=== PATIENT | female | born 1955 | race Hispanic/Latino ===

== ENCOUNTER → 2018-02-21 | Outpatient (CLI) | payer OTHER, MEDICARE ==
[~2018-02-21] MED LIST: ALBU8.5H8 IH; ASPI-1181 PO; ATOR40TA69 PO; CALC600T12 PO; OMEP40CA37 PO; OXYB5TAB10 PO; PREG75 PO; PREM625 PO; QUET150T PO; VENL-63 PO
== END ==
LOC: RAH 09:10
PROVIDERS: ATTEND Internal Medicine
DX: M25.562 Pain in left knee (principal)
CPT/HCPCS: 73562

== ENCOUNTER → 2018-10-05 | Outpatient (CLI) | payer OTHER, MEDICARE | END | disposition home or self-care (01) | LOC: RAH 08:57 | PROVIDERS: ATTEND Internal Medicine | DX: Z12.31 Encounter for screening mammogram for malignant neoplasm of breast (principal) | CPT/HCPCS: 77067 ==

== ENCOUNTER → 2018-12-18 | Outpatient (CLI) | payer OTHER, MEDICARE | END | disposition home or self-care (01) | LOC: RAH 09:42 | PROVIDERS: ATTEND Internal Medicine | DX: S60.011A Contusion of right thumb without damage to nail, initial encounter (principal); L03.011 Cellulitis of right finger; X58.XXXA Exposure to other specified factors, initial encounter; Y93.89 Activity, other specified; Y92.89 Other specified places as the place of occurrence of the external cause; Y99.8 Other external cause status | CPT/HCPCS: 73130 ==

== ENCOUNTER → 2019-07-16 | Outpatient (CLI) | payer OTHER, MEDICARE ==
[~2019-07-16] MED LIST changes: -QUET150T PO; +QUET150T2 PO
== END | disposition home or self-care (01) ==
LOC: RAH 09:40
PROVIDERS: ATTEND Internal Medicine
DX: M17.11 Unilateral primary osteoarthritis, right knee (principal)
CPT/HCPCS: 73562

== ENCOUNTER → 2019-12-02 | Outpatient (CLI) | payer OTHER, MEDICARE ==
[~2019-12-02] MED LIST changes: +OMEP40CA13 PO; -OMEP40CA37 PO; -OXYB5TAB10 PO; +OXYB5TAB15 PO
== END | disposition home or self-care (01) ==
LOC: RAH 08:53
PROVIDERS: ATTEND Orthopaedic Surgery
DX: S83.241A Other tear of medial meniscus, current injury, right knee, initial encounter (principal); X58.XXXA Exposure to other specified factors, initial encounter; Y93.89 Activity, other specified; Y92.89 Other specified places as the place of occurrence of the external cause; Y99.8 Other external cause status
CPT/HCPCS: 73721

== ENCOUNTER → 2019-12-11 | Outpatient (CLI) | payer OTHER, MEDICARE | END | disposition home or self-care (01) | LOC: RAH 11:35 | PROVIDERS: ATTEND Internal Medicine | DX: M19.011 Primary osteoarthritis, right shoulder (principal) | CPT/HCPCS: 73030 ==

== ENCOUNTER → 2019-12-31 | Outpatient (CLI) | payer OTHER, MEDICARE | END | disposition home or self-care (01) | LOC: RAH 11:21 | PROVIDERS: ATTEND Internal Medicine | DX: Z01.818 Encounter for other preprocedural examination (principal); I70.0 Atherosclerosis of aorta; M47.814 Spondylosis without myelopathy or radiculopathy, thoracic region | CPT/HCPCS: 71046 ==

== ENCOUNTER → 2020-01-01 | Outpatient (CLI) | payer OTHER, MEDICARE | END | disposition home or self-care (01) | LOC: RAH 08:47 | PROVIDERS: ATTEND Internal Medicine | DX: Z12.31 Encounter for screening mammogram for malignant neoplasm of breast (principal) | CPT/HCPCS: 77067 ==

== ENCOUNTER → 2020-01-06 | Outpatient (CLI) | payer OTHER, MEDICARE ==
[~2020-01-06] VITALS: Ht 157.5 cm; Wt 69.9 kg
[~2020-01-06] MED LIST changes: +CEFAZOLIN SODIUM 1 GM VIAL IVP SCH; +MONT10TA21 PO; +SIMV-46 PO; +TRAZ-187 PO
[2020-01-06 09:46] LABS: BASOPHILS % (AUTO) 0.6 % (0.0-5.0); EOSINOPHILS % (AUTO) 3.5 % (0.0-8.0); HEMATOCRIT 37.9 % (36-48); LYMPHOCYTES % (AUTO) 18.4 % (21.0-51.0); MEAN CORPUSCULAR HEMOGLOBIN 30.4 pg (27.0-33.0); MEAN CORPUSCULAR HGB CONC 32.5 g/dL (32.0-36.0); MEAN CORPUSCULAR VOLUME 93.6 fL (79-99); MONOCYTES % (AUTO) 7.9 % (3.0-13.0); NEUTROPHILS % (AUTO) 69.3 % (40.0-77.0); PLATELET COUNT (AUTO) 240 K/uL (130-400); RED BLOOD CELL COUNT(AUTO) 4.05 MIL/uL (4.00-5.50); RED CELL DISTRIBUTION WIDTH 14.2 % (11.0-15.5); WHITE BLOOD COUNT (AUTO) 6.9 K/uL (4.8-10.8)
[2020-01-06 10:00] LABS: CREATININE 0.6 mg/dL (0.5-1.5); POTASSIUM 4.4 mmol/L (3.5-5.1)
[2020-01-06 10:08] VITALS: BP 135/70
--- NOTE | 2020-01-06 10:43 | NUR ---
sick dr. alex notified that patient c/o cough with phlegm, he stated to keep patient on scheduled and notify patient if she gets worst ,or fever or chills to call us before hand to cancel surgery, pt was made aware and verbalized understanding. pt denied any fever, chills, body aches, she also stated she suffers from seasonal allergies couldn't distinguish if it was her normal allergies or not.
== END | disposition home or self-care (01) ==
LOC: DAH 10:00 → EDSTATUS 14:00
PROVIDERS: ATTEND Orthopaedic Surgery
DX: M23.203 Derangement of unspecified medial meniscus due to old tear or injury, right knee (principal); M25.561 Pain in right knee; M79.7 Fibromyalgia; K21.9 Gastro-esophageal reflux disease without esophagitis; G47.00 Insomnia, unspecified; F41.9 Anxiety disorder, unspecified; F32.9 Major depressive disorder, single episode, unspecified; I10 Essential (primary) hypertension; J45.909 Unspecified asthma, uncomplicated; I25.10 Atherosclerotic heart disease of native coronary artery without angina pectoris; M19.90 Unspecified osteoarthritis, unspecified site; Z79.899 Other long term (current) drug therapy; Z98.890 Other specified postprocedural states; Z90.49 Acquired absence of other specified parts of digestive tract; Z90.710 Acquired absence of both cervix and uterus; Z96.651 Presence of right artificial knee joint; Z98.51 Tubal ligation status; Z79.82 Long term (current) use of aspirin
CPT/HCPCS: 36415; 80048; 85025; 93005

== ENCOUNTER 2020-01-20 06:49 | Day surgery (SDC) | payer OTHER, MEDICARE ==
[2020-01-17 10:04] LABS: BASOPHILS % (AUTO) 0.7 % (0.0-5.0); HEMATOCRIT 38.6 % (36-48); LYMPHOCYTES % (AUTO) 25.8 % (21.0-51.0); MEAN CORPUSCULAR HEMOGLOBIN 30.1 pg (27.0-33.0); MEAN CORPUSCULAR HGB CONC 32.4 g/dL (32.0-36.0); MONOCYTES % (AUTO) 8.1 % (3.0-13.0); NEUTROPHILS % (AUTO) 60.9 % (40.0-77.0); PLATELET COUNT (AUTO) 323 K/uL (130-400); RED BLOOD CELL COUNT(AUTO) 4.15 MIL/uL (4.00-5.50); WHITE BLOOD COUNT (AUTO) 5.8 K/uL (4.8-10.8)
[2020-01-17 10:10] VITALS: BP 123/60
[2020-01-17 10:13] LABS: CREATININE 0.7 mg/dL (0.5-1.5); POTASSIUM 4.3 mmol/L (3.5-5.1)
[~2020-01-20] VITALS: Ht 158.8 cm; Wt 70.5 kg
[2020-01-20] VITALS (18 sets, daily range): BP systolic 115–169; BP diastolic 55–86
[~2020-01-20 06:49] MED LIST changes: +ALBU2.5V2 IH; -ATOR40TA69 PO; +ATOR40TA71 PO; +BACL10TA PO; +CALC-190 PO; -CALC600T12 PO; -CEFAZOLIN SODIUM 1 GM VIAL IVP SCH; +DICL2100G TP; +FISH1CAP20 PO; +FLUT16H NASAL; +LORA-705 PO; -MONT10TA21 PO; +NAPR-1023 PO; -PREM625 PO; +QUET100T33 PO; -QUET150T2 PO; -SIMV-46 PO; -VENL-63 PO; +VENL150T3 PO
[2020-01-20] MEDS: CEFAZOLIN SODIUM 1 GM VIAL IVP SCH ×2 (08:00→08:30)
[2020-01-20] MEDS ORDERED: LACTATED RINGERS 1000ML 1,000 ML IV ONE (08:03)
[2020-01-20] MEDS ORDERED: DEXAMETHASONE SOD PHOSPHATE 10MG/ML 1ML VIAL ONE (08:21)
[2020-01-20] MEDS ORDERED: ONDANSETRON HCL 4 MG/2 ML VIAL ONE (08:21)
[2020-01-20] MEDS ORDERED: LIDOCAINE PF 2% 5ML ABBOJECT ONE (08:21)
[2020-01-20] MEDS ORDERED: MIDAZOLAM HCL 1 MG/ML 2ML VIAL ONE (08:22)
[2020-01-20] MEDS ORDERED: FENTANYL CITRATE PF 50 MCG/1 ML 2ML VIAL ONE ×2 (08:22→08:52)
[2020-01-20] MEDS ORDERED: PROPOFOL 10 MG/ML 20ML VIAL IV ONE (08:22)
[2020-01-20] MEDS ORDERED: EPHEDRINE SULFATE 50 MG/ML AMPULE ONE (08:28)
[2020-01-20] MEDS ORDERED: NOREPINEPHRINE BITARTRATE 1 MG/1 ML ML IV ONE (08:39)
[2020-01-20] MEDS ORDERED: GLYCOPYRROLATE 1 MG/5 ML SYRINGE ONE (08:43)
[2020-01-20] MEDS ORDERED: ACET1TAB12 PO (09:19)
[2020-01-20] MEDS ORDERED: CEPH500B PO (09:19)
[2020-01-20] MEDS ORDERED: MEPERIDINE-PF 25 MG/ML SYG ONE ×2 (09:36→09:44)
--- NOTE | 2020-01-20 11:40 | NUR ---
PATIENT DISCHARGED FROM HOSPITAL VIA WHEELCHAIR AND PICKED UP BY [facility] IN [place].
== END 2020-01-20 11:40 | disposition home or self-care (01) ==
LOC: DAH 06:49
PROVIDERS: ATTEND Orthopaedic Surgery
DX: S83.241A Other tear of medial meniscus, current injury, right knee, initial encounter (principal); I25.10 Atherosclerotic heart disease of native coronary artery without angina pectoris; I73.9 Peripheral vascular disease, unspecified; E78.5 Hyperlipidemia, unspecified; G89.29 Other chronic pain; E66.9 Obesity, unspecified; X58.XXXA Exposure to other specified factors, initial encounter; Y93.89 Activity, other specified; Y92.89 Other specified places as the place of occurrence of the external cause; Y99.8 Other external cause status; Z79.899 Other long term (current) drug therapy; Z98.890 Other specified postprocedural states; Z68.28 Body mass index [BMI] 28.0-28.9, adult
CPT/HCPCS: 29881; 36415; 80048; 85025; A4213; A4215; A4221; A4222; A4223; A4606; A4649 ×2; A4663; A4930; A5120; A6223; J0690; J1100; J2001; J2175 ×2; J2250; J2405; J2704; J3010 ×2; J3490 ×3; J7030; J7120

== ENCOUNTER 2020-07-05 11:17 | Emergency (ER) | payer OTHER, MEDICARE ==
[~2020-07-05 11:17] MED LIST changes: +ACET1TAB12 PO; -ASPI-1181 PO; +ASPI-1443 PO; +CEPH500B PO
[2020-07-05] MEDS ORDERED: KETOROLAC TROMETHAMINE 30MG/ML ONE (12:06)
[2020-07-05] MEDS ORDERED: CYCLOBENZAPRINE HCL 10 MG TABLET ONE (12:06)
[2020-07-05 12:26] LABS: BASOPHILS % (AUTO) 0.6 % (0.0-5.0); EOSINOPHILS % (AUTO) 3.9 % (0.0-8.0); HEMATOCRIT 35.3 % (36-48); LYMPHOCYTES % (AUTO) 28.6 % (21.0-51.0); MEAN CORPUSCULAR HEMOGLOBIN 30.4 pg (27.0-33.0); MEAN CORPUSCULAR HGB CONC 32.9 g/dL (32.0-36.0); MEAN CORPUSCULAR VOLUME 92.7 fL (79-99); MONOCYTES % (AUTO) 11.7 % (3.0-13.0); NEUTROPHILS % (AUTO) 54.3 % (40.0-77.0); PLATELET COUNT (AUTO) 284 K/uL (130-400); RED BLOOD CELL COUNT(AUTO) 3.81 MIL/uL (4.00-5.50); RED CELL DISTRIBUTION WIDTH 14.6 % (11.0-15.5); WHITE BLOOD COUNT (AUTO) 4.6 K/uL (4.8-10.8)
[2020-07-05 12:35] LABS: CREATININE 0.8 mg/dL (0.5-1.5); POTASSIUM 4.5 mmol/L (3.5-5.1)
[2020-07-05 12:40] LABS: ALBUMIN 3.6 g/dL (3.5-5.0); BILIRUBIN,TOTAL 0.5 mg/dL (0.2-1.0); TOTAL PROTEIN, SERUM 6.8 g/dL (6.0-8.3)
== END 2020-07-05 14:44 | disposition home or self-care (01) ==
LOC: EDH 11:17
DX: U07.1 COVID-19 (principal); R05 Cough; R07.89 Other chest pain; R06.02 Shortness of breath; J45.909 Unspecified asthma, uncomplicated
CPT/HCPCS: 36415; 71045; 80053; 82550; 84484; 85025; 87426; 93005; 96374; 99285; J1885; U0003

== ENCOUNTER → 2020-07-29 | Outpatient (CLI) | payer OTHER, MEDICARE | END | disposition home or self-care (01) | LOC: RAH 09:29 | PROVIDERS: ATTEND Internal Medicine | DX: J45.901 Unspecified asthma with (acute) exacerbation (principal); J20.9 Acute bronchitis, unspecified; R05 Cough; M47.814 Spondylosis without myelopathy or radiculopathy, thoracic region | CPT/HCPCS: 71046 ==

== ENCOUNTER → 2020-12-15 | Outpatient (CLI) | payer OTHER, MEDICARE ==
[~2020-12-15] MED LIST changes: +LORA-699 PO; -LORA-705 PO
== END | disposition home or self-care (01) ==
LOC: RAH 10:45
PROVIDERS: ATTEND Internal Medicine
DX: M19.011 Primary osteoarthritis, right shoulder (principal); M25.511 Pain in right shoulder
CPT/HCPCS: 73000; 73030

== ENCOUNTER → 2021-02-08 | Outpatient (CLI) | payer OTHER, MEDICARE ==
[~2021-02-08] VITALS: Ht 157.5 cm; Wt 70.8 kg
[~2021-02-08] MED LIST changes: +REGADENOSON 0.4 MG/5 ML PF SYG IVP SCH
== END | disposition home or self-care (01) ==
LOC: SHCH 08:31
PROVIDERS: ATTEND Internal Medicine Cardiovascular Disease
DX: R53.83 Other fatigue (principal); I10 Essential (primary) hypertension; R06.00 Dyspnea, unspecified; R07.89 Other chest pain
CPT/HCPCS: 78452; 93017; 96374; A9500 ×2; J2785

== ENCOUNTER → 2021-05-03 | Outpatient (CLI) | payer OTHER, MEDICARE ==
[~2021-05-03] MED LIST changes: -OMEP40CA13 PO; +OMEP40CA21 PO; -REGADENOSON 0.4 MG/5 ML PF SYG IVP SCH
== END | disposition home or self-care (01) ==
LOC: RAH 10:11
PROVIDERS: ATTEND Internal Medicine
DX: Z12.31 Encounter for screening mammogram for malignant neoplasm of breast (principal)
CPT/HCPCS: 77067

== ENCOUNTER → 2022-07-27 | Outpatient (CLI) | payer OTHER, MEDICARE ==
[~2022-07-27] MED LIST changes: -QUET100T33 PO; +QUET100T34 PO
== END | disposition home or self-care (01) ==
LOC: RAH 08:59
PROVIDERS: ATTEND Internal Medicine
DX: R92.8 Other abnormal and inconclusive findings on diagnostic imaging of breast (principal); N64.4 Mastodynia
CPT/HCPCS: 76641; 77066

== ENCOUNTER 2022-12-24 19:05 | Emergency (ER) | payer OTHER, MEDICARE ==
[~2022-12-24] VITALS: Ht 160 cm; Wt 74.8 kg
[2022-12-24 19:56] LABS: BASOPHILS % (AUTO) 0.5 % (0.0-5.0); EOSINOPHILS % (AUTO) 1.9 % (0.0-8.0); HEMATOCRIT 39.3 % (36-48); MEAN CORPUSCULAR HEMOGLOBIN 31.1 pg (27.0-33.0); MEAN CORPUSCULAR HGB CONC 33.8 g/dL (32.0-36.0); MEAN CORPUSCULAR VOLUME 91.8 fL (79-99); MONOCYTES % (AUTO) 9.4 % (3.0-13.0); NEUTROPHILS % (AUTO) 56.7 % (40.0-77.0); PLATELET COUNT (AUTO) 235 K/uL (130-400); RED BLOOD CELL COUNT(AUTO) 4.28 MIL/uL (4.00-5.50); RED CELL DISTRIBUTION WIDTH 14.3 % (11.0-15.5); WHITE BLOOD COUNT (AUTO) 6.5 K/uL (4.8-10.8)
[2022-12-24] MEDS ORDERED: MORPHINE 2 MG SYG IVP ONE ×2 (20:00→20:30)
[2022-12-24] MEDS ORDERED: IOHEXOL 350 MG/ML 100ML INFUS..BTL IV ONE (20:07)
[2022-12-24 20:13] LABS: INR 0.93 (0.85-1.15); PROTHROMBIN TIME 10.1 SEC (9.6-11.6)
[2022-12-24 20:15] LABS: PARTIAL THROMBOPLASTIN TIME 25.1 SEC (26.3-35.5)
[2022-12-24 20:47] LABS: CREATININE 0.7 mg/dL (0.5-1.5); POTASSIUM 3.9 mmol/L (3.5-5.1)
[2022-12-24 20:58] LABS: ALBUMIN 4.3 g/dL (3.5-5.0); TOTAL PROTEIN, SERUM 7.3 g/dL (6.0-8.3)
[2022-12-24] MEDS ORDERED: TRAZ-258 PO (21:59)
[2022-12-24] MEDS ORDERED: LIDOP TD (22:00)
[2022-12-24] MEDS ORDERED: IBUP-2076 PO (22:00)
[2022-12-24 22:04] VITALS: BP 136/70
== END 2022-12-24 22:22 | disposition home or self-care (01) ==
LOC: EDH 19:05
DX: S22.31XA Fracture of one rib, right side, initial encounter for closed fracture (principal); E78.00 Pure hypercholesterolemia, unspecified; I10 Essential (primary) hypertension; F41.9 Anxiety disorder, unspecified; J32.3 Chronic sphenoidal sinusitis; Z79.899 Other long term (current) drug therapy; Z90.49 Acquired absence of other specified parts of digestive tract; Z79.1 Long term (current) use of non-steroidal anti-inflammatories (NSAID); W18.39XA Other fall on same level, initial encounter; Y93.89 Activity, other specified; Y92.89 Other specified places as the place of occurrence of the external cause; Y99.8 Other external cause status
CPT/HCPCS: 99285; 70450; 96374; 82550; 84484; 80053; 85025; 85610; 85730; 36415; 72125; 71260; 74177; 93005; Q9967; 96376

== ENCOUNTER → 2022-12-27 | Outpatient (CLI) | payer OTHER, MEDICARE ==
[~2022-12-27] MED LIST changes: +IBUP-2076 PO; +LIDOP TD; +TRAZ-258 PO
== END | disposition home or self-care (01) ==
LOC: RAH 10:29
PROVIDERS: ATTEND Internal Medicine
DX: R07.81 Pleurodynia (principal); M25.511 Pain in right shoulder
CPT/HCPCS: 71100; 73030

== ENCOUNTER → 2023-04-03 | Outpatient (CLI) | payer OTHER, MEDICARE ==
[~2023-04-03] MED LIST changes: -ACET1TAB12 PO; -CEPH500B PO
== END | disposition home or self-care (01) ==
LOC: RAH 08:56
PROVIDERS: ATTEND Internal Medicine
DX: M19.012 Primary osteoarthritis, left shoulder (principal); M25.512 Pain in left shoulder
CPT/HCPCS: 73030

== ENCOUNTER → 2023-08-10 | Outpatient (CLI) | payer OTHER, MEDICARE | END | disposition home or self-care (01) | LOC: RAH 08:53 | PROVIDERS: ATTEND Internal Medicine | DX: Z12.31 Encounter for screening mammogram for malignant neoplasm of breast (principal) | CPT/HCPCS: 77067 ==

== ENCOUNTER → 2023-08-15 | Outpatient (CLI) | payer OTHER, MEDICARE ==
[~2023-08-15] MED LIST changes: -OXYB5TAB15 PO; +OXYB5TAB20 PO; +REGADENOSON 0.4 MG/5 ML PF SYG IVP ONE
== END | disposition home or self-care (01) ==
LOC: SHCH 08:23
PROVIDERS: ATTEND Internal Medicine Cardiovascular Disease
DX: I25.119 Atherosclerotic heart disease of native coronary artery with unspecified angina pectoris (principal); I49.3 Ventricular premature depolarization; R07.89 Other chest pain; R00.0 Tachycardia, unspecified
CPT/HCPCS: 78452; 93017; J2785; A9500 ×2; 96374

== ENCOUNTER → 2023-12-27 | Outpatient (CLI) | payer OTHER, MEDICARE ==
[~2023-12-27] MED LIST changes: -REGADENOSON 0.4 MG/5 ML PF SYG IVP ONE
== END | disposition home or self-care (01) ==
LOC: RAH 08:27
PROVIDERS: ATTEND Internal Medicine
DX: M48.05 Spinal stenosis, thoracolumbar region (principal); M54.59 Other low back pain; M51.36 Other intervertebral disc degeneration, lumbar region; M47.816 Spondylosis without myelopathy or radiculopathy, lumbar region
CPT/HCPCS: 72148

== ENCOUNTER 2024-01-01 09:47 | Emergency (ER) | payer OTHER, MEDICARE ==
[~2024-01-01] VITALS: Ht 162.6 cm; Wt 70.3 kg
[2024-01-01 09:49] VITALS: BP 145/66; PULSE 97; RESP 16
[2024-01-01 10:27] LABS: BASOPHILS # (AUTO) 0.05 K/uL (0.00-0.20); BASOPHILS % (AUTO) 0.7 % (0.0-5.0); EOSINOPHILS % (AUTO) 1.4 % (0.0-8.0); HEMATOCRIT 37.9 % (36-48); IMMATURE GRANULOCYTE ABSOLUTE 0.02 K/uL (0-1); LYMPHOCYTES # (AUTO) 0.8 K/uL (1.0-4.8); LYMPHOCYTES % (AUTO) 11.1 % (21.0-51.0); MEAN CORPUSCULAR HEMOGLOBIN 30.5 pg (27.0-33.0); MEAN CORPUSCULAR HGB CONC 32.5 g/dL (32.0-36.0); MONOCYTES # (AUTO) 0.7 K/uL (0.1-1.0); MONOCYTES % (AUTO) 9.9 % (3.0-13.0); NEUTROPHILS # (AUTO) 5.5 K/uL (1.8-7.7); NEUTROPHILS % (AUTO) 76.6 % (40.0-77.0); PLATELET COUNT (AUTO) 297 K/uL (130-400); RED BLOOD CELL COUNT(AUTO) 4.03 MIL/uL (4.00-5.50); RED CELL DISTRIBUTION WIDTH 15.1 % (11.0-15.5); WHITE BLOOD COUNT (AUTO) 7.2 K/uL (4.8-10.8)
[2024-01-01 10:33] LABS: CREATININE 0.7 mg/dL (0.5-1.5); POTASSIUM 4.3 mmol/L (3.5-5.1)
[2024-01-01 10:38] LABS: ALBUMIN 3.8 g/dL (3.5-5.0); BILIRUBIN,TOTAL 0.4 mg/dL (0.2-1.0); TOTAL PROTEIN, SERUM 7.4 g/dL (6.0-8.3)
[2024-01-01 10:40] LABS: RAPID GROUP A STREP negative (NEGATIVE)
[2024-01-01 10:41] LABS: SARS-CoV-2, RNA, NAAT NEGATIVE SARS CoV-2 (NEGATIVE)
[2024-01-01 10:49] LABS: INFLUENZA TYPE A Negative For Type A (NEGATIVE); INFLUENZA TYPE B Negative For Type B (NEGATIVE)
[2024-01-01] MEDS ORDERED: GUAI5LIQ13 PO (11:55)
== END 2024-01-01 12:18 | disposition home or self-care (01) ==
LOC: EDH 09:47
DX: J06.9 Acute upper respiratory infection, unspecified (principal); I10 Essential (primary) hypertension; E11.9 Type 2 diabetes mellitus without complications; F32.A Depression, unspecified; F41.9 Anxiety disorder, unspecified; J45.909 Unspecified asthma, uncomplicated; E78.00 Pure hypercholesterolemia, unspecified; Z20.822 Contact with and (suspected) exposure to COVID-19; Z79.82 Long term (current) use of aspirin; Z90.49 Acquired absence of other specified parts of digestive tract; Z98.890 Other specified postprocedural states; Z79.899 Other long term (current) drug therapy
CPT/HCPCS: 36415; 71045; 80053; 83880; 84484; 85025; 87635; 87804; 87880; 93005

== ENCOUNTER → 2024-08-13 | Outpatient (CLI) | payer OTHER, MEDICARE ==
[~2024-08-13] MED LIST changes: +GUAI5LIQ13 PO
== END | disposition home or self-care (01) ==
LOC: RAH 09:17
PROVIDERS: ATTEND Internal Medicine
DX: Z12.31 Encounter for screening mammogram for malignant neoplasm of breast (principal); N63.11 Unspecified lump in the right breast, upper outer quadrant; R92.323 Mammographic fibroglandular density, bilateral breasts
CPT/HCPCS: 77067

== ENCOUNTER → 2024-09-25 | Outpatient (CLI) | payer OTHER, MEDICARE | END | disposition home or self-care (01) | LOC: RAH 10:21 | PROVIDERS: ATTEND Clinical Nurse Specialist Family Health | DX: M79.671 Pain in right foot (principal); M79.7 Fibromyalgia; M72.2 Plantar fascial fibromatosis | CPT/HCPCS: 73630 ==

== ENCOUNTER 2025-01-14 11:10 | Emergency (ER) | payer OTHER, MEDICARE ==
[~2025-01-14] VITALS: Ht 157.5 cm; Wt 69.4 kg
[~2025-01-14 11:10] MED LIST changes: -GUAI5LIQ13 PO; +GUAI5SYR10 PO; -NAPR-1023 PO; +NAPR-1194 PO
[2025-01-14] MEDS: LIDOCAINE HCL 1% 20 ML VIAL INJ ONE (12:22)
[2025-01-14] MEDS ORDERED: AMOX1TAB16 PO (12:41)
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
--- NOTE | 2025-01-14 12:45 | NUR ---
2 SUTURES PLACED PT INSTRUCTED REMOVAL 7-10 DAYS POST LAC REPAIR INSTRUCTION PROVIDED ABX ORDERED
[2025-01-14 12:50] VITALS: BP 141/73; PULSE 76; RESP 18; TEMP 97.5; O2SAT 99
[2025-01-14] MEDS: teTANUS/diphthERIA TOXOID [ADULT] 0.5 ML VIAL IM ONE (12:54)
== END 2025-01-14 13:01 | disposition home or self-care (01) ==
LOC: EDH 11:10
DX: S61.412A Laceration without foreign body of left hand, initial encounter (principal); F41.9 Anxiety disorder, unspecified; J45.909 Unspecified asthma, uncomplicated; E78.00 Pure hypercholesterolemia, unspecified; F32.A Depression, unspecified; I10 Essential (primary) hypertension; Z79.899 Other long term (current) drug therapy; Z90.49 Acquired absence of other specified parts of digestive tract; W26.0XXA Contact with knife, initial encounter; Y93.89 Activity, other specified; Y92.89 Other specified places as the place of occurrence of the external cause; Y99.8 Other external cause status
CPT/HCPCS: 12001; 90471; 90714; 99283

== ENCOUNTER → 2025-01-22 | Outpatient (CLI) | payer OTHER, MEDICARE ==
[~2025-01-22] MED LIST changes: +AMOX1TAB16 PO
[2025-01-22 12:40] LABS: BILIRUBIN,TOTAL 0.4 mg/dL (0.2-1.0); CREATININE 0.6 mg/dL (0.5-1.0); POTASSIUM 4.7 mmol/L (3.5-5.1); TOTAL PROTEIN, SERUM 7.4 g/dL (6.0-8.3)
== END | disposition home or self-care (01) ==
LOC: LAB 08:28
PROVIDERS: ATTEND Internal Medicine Cardiovascular Disease
DX: I25.119 Atherosclerotic heart disease of native coronary artery with unspecified angina pectoris (principal)
CPT/HCPCS: 36415; 80053

== ENCOUNTER → 2025-03-10 | Outpatient (CLI) | payer OTHER, MEDICARE ==
--- NOTE | 2025-03-10 10:58 | HMCIMG ---
Exam Type: THORACIC SPINE SERIES 3 views History: THORACIC SPINE PAIN Comparison: none Findings: Spondylitic and degenerative changes of the dorsal spine are seen. There are degenerative changes of the apophyseal joints as well. The disc spaces are preserved. No fractures or dislocations are noted. No paraspinal soft tissue abnormalities are seen. Impression: 1. DEGENERATIVE CHANGES OF THE SPINE. NO ACUTE FRACTURES OR DISLOCATIONS NOTED AT THIS TIME.
--- NOTE | 2025-03-10 10:58 | HMCIMG ---
Exam Type: CHEST 2VWS Clinical Information: CHEST PAIN Comparison: None Findings: The lungs are clear of infiltrates. The heart is normal in size. The bony and soft tissue structures of the chest are unremarkable. Impression: Clear lungs.
== END | disposition home or self-care (01) ==
LOC: RAH 09:54
PROVIDERS: ATTEND Nurse Practitioner Family
DX: M47.814 Spondylosis without myelopathy or radiculopathy, thoracic region (principal); M19.09 Primary osteoarthritis, other specified site; M54.6 Pain in thoracic spine; R07.89 Other chest pain
CPT/HCPCS: 71046; 72070

== ENCOUNTER → 2025-03-24 | Outpatient (CLI) | payer OTHER, MEDICARE ==
--- NOTE | 2025-03-24 11:48 | HMCIMG ---
SHOULDER COMP 2+VWS RT HISTORY: Contusion COMPARISON: None TECHNIQUE: 2 images of right shoulder were obtained. FINDINGS: There is no acute displaced fracture or dislocation. Joint space narrowing is seen. Degenerative changes are seen. IMPRESSION: 1. Findings as described above.
--- NOTE | 2025-03-24 11:49 | HMCIMG ---
HUMERUS 2+VWS RT HISTORY: Right upper arm contusion COMPARISON: None TECHNIQUE: 2 images of right humerus were obtained. FINDINGS: There is no acute displaced fracture or dislocation. Degenerative changes are seen. IMPRESSION: 1. Findings as described above.
--- NOTE | 2025-03-24 11:49 | HMCIMG ---
FOREARM 2VWS RT HISTORY: Contusion COMPARISON: None TECHNIQUE: 2 images of right forearm were obtained. FINDINGS: There is bone density noted adjacent to the proximal radius at metaphyseal portion may be related to exostosis. There is no acute displaced fracture or dislocation. Degenerative changes are seen. IMPRESSION: 1. Findings as described above.
== END | disposition home or self-care (01) ==
LOC: RAH 10:42
PROVIDERS: ATTEND Internal Medicine
DX: S40.021D Contusion of right upper arm, subsequent encounter (principal); M19.041 Primary osteoarthritis, right hand; M19.011 Primary osteoarthritis, right shoulder; M25.811 Other specified joint disorders, right shoulder; M79.601 Pain in right arm; M25.511 Pain in right shoulder; X58.XXXD Exposure to other specified factors, subsequent encounter
CPT/HCPCS: 73030; 73060; 73090

== ENCOUNTER → 2025-11-06 | Outpatient (CLI) | payer OTHER, MEDICARE | END | disposition home or self-care (01) | LOC: RAH 09:40 | PROVIDERS: ATTEND Internal Medicine | DX: Z12.31 Encounter for screening mammogram for malignant neoplasm of breast (principal) | CPT/HCPCS: 77067 ==